=== PATIENT | male | born 1985 | race Caucasian/White ===

== ENCOUNTER 2022-08-27 19:40 | Emergency (ER) | payer BC, SELFPAY ==
[2022-08-27 19:55] VITALS: BP 153/103; PULSE 81; RESP 18; TEMP 36.6; O2SAT 99; BMI 25.0
--- NOTE | 2022-08-27 20:15 | CRLHL7_ITS ---
For Patients: As a result of the Century Cures Act, medical imaging exams and procedure reports are released immediately into your electronic medical record. You may view this report before your referring provider. If you have questions, please contact your health care provider. INDICATION: Abdominal pain. History of diverticulitis. CT ABDOMEN AND PELVIS WITH CONTRAST TECHNIQUE: Multidetector CT imaging was performed through the abdomen and pelvis following intravenous contrast administration using 98 mL Isovue 370. Coronal and sagittal reconstructions were generated. COMPARISON: 07/22/2020 CT abdomen and pelvis. FINDINGS: Lower chest: Lung bases are clear. Liver: Within normal limits. Gallbladder and bile ducts: No gallbladder wall thickening or calcified gallstones. No biliary dilation identified. Pancreas: Unremarkable. Spleen: Normal. Adrenals: 4 centimeter right adrenal myelolipoma again seen. Unremarkable left adrenal. Kidneys, ureters, and urinary bladder: No renal masses or hydronephrosis. No bladder mass or definite wall thickening. Gastrointestinal tract: Normal caliber small bowel without wall thickening or obstruction. The appendix is normal. Multiple colon diverticula are again noted. There is wall thickening and pericolonic fat stranding of the mid to distal sigmoid colon, consistent with diverticulitis. Vascular structures: Stable mild dilation of the celiac trunk. Normal aortic caliber. Peritoneum: No free air, abscess, or significant free fluid. Lymph nodes: No pathologically enlarged nodes identified. Reproductive organs: No pelvic masses. Bones: Normal for age. IMPRESSION: 1. Moderately severe acute diverticulitis of the sigmoid colon. No evidence of perforation or abscess. 2. Nonacute additional findings as detailed above. ZEINA HOWARD MD [employer] Dictated by Anibal Howard MD @ 08/27/2022 9:05:28 PM Please note that all CT scans at this facility use dose modulation, iterative reconstruction, and/or weight-based dosing when appropriate to reduce radiation dose to as low as reasonably achievable. Dictated by: Anibal Howard MD @ 08/27/2022 21:07:53 (Electronically Signed)
--- NOTE | 2022-08-27 20:19 | ED_ITS ---
HPI - Abdominal Pain General Chief Complaint: Abdominal Pain Stated Complaint: Diverticulitis Time Seen by Provider: 08/27/22 20:07 History of Present Illness HPI narrative: Patient is 36-year-old gentleman with history of recurrent diverticulitis who presents with 5 days of left-sided abdominal pain. He has had no blood in his stool. He has no dysuria no nausea no vomiting no fevers no chills. He has been eating and drinking to a limited extent. He has had no weight loss. He swift s had no recent antibiotics. Patient has been treated as an outpatient non number of times is concerned that he may have low-grade diverticulitis at this time. No other related symptoms patient is otherwise feeling well. Related Data Home Medications Medication Instructions Recorded Confirmed levothyroxine 50 mcg tablet 50 mcg PO DAILY 08/27/22 08/27/22 linaclotide 145 mcg capsule 145 mcg PO DAILY 08/27/22 08/27/22 (Linzess) Allergies Allergy/AdvReac Type Severity Reaction Status Date / Time No Known Drug Allergies Allergy Verified 08/27/22 19:53 Review of Systems Status of ROS Reports: 10 or more systems reviewed and unremarkable except as noted in History and below [facility] Medical History Hypothyroidism ?E03.9 - Hypothyroidism, unspecified (ICD-10) Diverticulitis ?K57.92 - Diverticulitis of intestine, part unspecified, without perforation or abscess without bleeding (ICD-10) Social History Smoking Status: Former smoker Do you use any of these nicotine containing products: Smokeless Tobacco Second hand tobacco smoke exposure: No How often do you have a drink containing alcohol: monthly or less How often do you have six or more drinks on one occasion: Never AUDIT-C Alcohol total score: 1 Non-prescribed substance use: denies use Exam Narrative: Exam Narrative: EXAM GENERAL: Patient appears comfortable and well. EYES: No scleral icterus. LYMPH: No supraclavicular or cervical lymphadenopathy. SKIN: Visible skin seen during exam normal or with benign process only. EXT: No dependent lower extremity pedal edema. HEART: Regular rate and rhythm with no murmurs, rubs, or gallops. LUNGS: Clear to auscultation bilaterally with no crackles or wheezes. ABD: Soft, non tender, non distended. PSYCH: Good eye contact, speech is not pressured. Const: Vital Signs, click to edit/add: Vital Signs - 24 hr 08/27/22 19:55 Temperature 97.9 F Pulse Rate [Pulse Oximeter] 81 Respiratory Rate 18 Blood Pressure [Le ft Upper Arm] 153/103 H Pulse Oximetry 99 Oxygen Delivery Me thod Room Air Course Course Hospital Course: Patient seen examined. CT abdomen pelvis UA CBC comprehensive metabolic panel amylase ordered. Vital Signs Vital signs: Initial Vital Signs Temperature 97.9 F 08/27/22 19:55 Temperature Source Temporal Artery Scan 08/27/22 19:55 Pulse Rate 81 08/27/22 19:55 Pulse Rhythm Regular 08/27/22 19:55 Respiratory Rate 18 08/27/22 19:55 Blood Pressure 153/103 H 08/27/22 19:55 Blood Pressure Mean 119 H 08/27/22 19:55 Pulse Oximetry 99 08/27/22 19:55 Oxygen Delivery Method Room Air 08/27/22 19:55 Vital Signs Temperature 97.9 F 08/27/22 19:55 Pulse Rate 81 08/27/22 19:55 Respiratory Rate 18 08/27/22 19:55 Blood Pressure 153/103 H 08/27/22 19:55 Pulse Oximetry 99 08/27/22 19:55 Oxygen Delivery Method Room Air 08/27/22 19:55 Temperature 97.9 F 08/27/22 19:55 Pulse Rate 81 08/27/22 19:55 Respiratory Rate 18 08/27/22 19:55 Blood Pressure 153/103 H 08/27/22 19:55 Pulse Oximetry 99 08/27/22 19:55 Oxygen Delivery Method Room Air 08/27/22 19:55 MDM - Abdominal Pain Medical Records Medical records narrative: Patient is a 36-year-old gentleman with history of recurrent diverticulitis. He presents with left lower quadrant pain and CT scan shows diverticulitis without perforation. Patient has done well on outpatient Cipro and Flagyl. He is not toxic in appearance. I did prescribe Cipro and Flagyl for the next 10 days with outpatient follow-up with me in the interim p.r.n. if symptoms do not improve. Patient has seen [facility] in the past and have discussed partial colectomy. Patient take Tylenol and Motrin as needed follow-up as directed. Lab Data Labs: Lab Results 08/27/22 Range/Units 20:25 Sodium 132 L (135-149) mmol/L Potassium 4.1 (3.6-5.1) mmol/L Chloride 98 (96-114) mmol/L Carbon Dioxide 27 (20-32) mmol/L BUN 9 (5-24) mg/dL Creatinine 1.2 (0.5-1.5) mg/dL Estimated Creat Clear 101.71 Estimated GFR 80 ml/min Glucose 74 (60-115) mg/dL Calcium 9.9 (8.4-10.6) mg/dL Total Bilirubin 1.4 (0.1-1.5) mg/dL AST 28 (12-35) U/L ALT 30 (4-50) U/L Alkaline Phosphatase 66 (40-150) U/L Total Protein 8.2 (6.0-8.3) g/dL Albumin 4.7 (3.3-5.0) g/dL Amylase 68 (18-89) U/L Discharge Plan Discharge Clinical Impression: Diverticulitis Patient Disposition: Home, Self-Care Condition: Stable Instructions: Diverticulitis (ED) Additional Instructions: Cipro Flagyl Tylenol Motrin Advanced diet as tolerated Follow-up with [facility] as directed Activity Level: No Restrictions Discharge Diet: Regular Prescriptions: No Action levothyroxine 50 mcg tablet 50 mcg PO DAILY Linzess 145 mcg capsule 145 mcg PO DAILY Stand Alone Forms: [employer] Info Instructions
[2022-08-27 20:44] LABS: Albumin* 4.7 g/dL (3.3-5.0); Chloride* 98 mmol/L (96-114); Potassium* 4.1 mmol/L (3.6-5.1); Sodium* 132 mmol/L (135-149)
[2022-08-27 20:47] LABS: Alkaline Phosphatase* 66 U/L (40-150); Amylase* 68 U/L (18-89); Aspartate Amino Transferase* 28 U/L (12-35); Bilirubin Total* 1.4 mg/dL (0.1-1.5); Blood Urea Nitrogen* 9 mg/dL (5-24); Calcium* 9.9 mg/dL (8.4-10.6); Carbon Dioxide* 27 mmol/L (20-32); Creatinine* 1.2 mg/dL (0.5-1.5); Est. Creatinine Clearance* 101.71; Estimated Glomerular Filt Rate 80 ml/min; Glucose* 74 mg/dL (60-115); Total Protein* 8.2 g/dL (6.0-8.3)
[2022-08-27 20:48] LABS: Alanine Aminotransferase* 30 U/L (4-50)
[2022-08-27 21:36] LABS: Basophils Absolute Auto 0.02 K/uL (0.00-0.30); Basophils Percent Auto 0.3 % (0.0-3.0); Eosinophils Percent Auto 1.3 % (0.0-7.0); Hematocrit 49.5 % (37.0-53.0); Hemoglobin* 16.3 gm/dL (13.5-17.5); Immature Granulocytes Abs Auto 0.02 K/uL (0.00-0.30); Immature Granulocytes Pct Auto 0.3 %; Lymphocytes Percent Auto 19.9 % (20-44); Mean Corpuscular HGB Conc 33 gm/dL (32-36); Mean Corpuscular Hemoglobin 27 pg (26-34); Mean Corpuscular Volume 80 fL (80-100); Monocytes Percent Auto 8.4 % (0.0-11.0); Neutrophils Absolute Auto 5.21 K/uL (1.7-7.0); Neutrophils Percent Auto 69.8 % (42.0-72.0); Platelet Count* 219 K/uL (140-440); RDW Coefficient of Variation % 15.2 % (11.5-15.5); Red Blood Count 6.16 m/uL (4.30-5.90); White Blood Count* 7.47 K/uL (4.50-11.00)
[2022-08-27 21:38] LABS: Slide Review Reflex No
[2022-08-27 21:42] VITALS: BP 142/92; PULSE 77; RESP 18; O2SAT 98
== END 2022-08-27 21:43 | disposition home or self-care (01) ==
PROVIDERS: Emergency Provider Internal Medicine
DX: K57.92 Diverticulitis of intestine, part unspecified, without perforation or abscess without bleeding (principal)
CPT/HCPCS: 36415; 74177; 80053; 81003; 82150; 85025; 99283; 99284; 99285; Q9967

== ENCOUNTER 2023-03-14 09:41 | Emergency (ER) | payer BC, SELFPAY ==
[2023-03-14 10:00] VITALS: BP 140/87; PULSE 80; RESP 16; TEMP 36.6; O2SAT 100; BMI 30.8
--- NOTE | 2023-03-14 10:20 | ED.ABDPAIN ---
HPI - Abdominal Pain General Chief Complaint: Abdominal Pain Stated Complaint: Diverticulitis Time Seen by Provider: 03/14/23 10:12 History of Present Illness HPI narrative: Patient is a 37-year-old gentleman who I have seen the past for diverticulitis presents with a 1 day history of left lower quadrant pain. In 17 days patient is going to have a left sided partial colectomy due to recurrent diverticulitis. We did do imaging in August which showed diverticulitis without perforation. Patient presents with no blood in his stool no fevers no chills no nausea no vomiting. Pain is moderate but he is from [facility] with symptoms of diverticulitis and decided to come in right away. He does extremely well on Cipro and Flagyl. He has had no other complications with his diverticulitis in the past. He has no diarrhea no chest pain shortness a breath orthopnea no PND. Again pain is localized to left lower quadrant and is sharp. Related Data Home Medications Medication Instructions Recorded Confirmed levothyroxine 50 mcg tablet 50 mcg PO DAILY 08/27/22 08/27/22 linaclotide 145 mcg capsule 145 mcg PO DAILY 08/27/22 08/27/22 (Linzess) Allergies Allergy/AdvReac Type Severity Reaction Status Date / Time No Known Drug Allergies Allergy Verified 08/27/22 19:53 Review of Systems Status of ROS Reports: 10 or more systems reviewed and unremarkable except as noted in History and below [facility] Medical History Hypothyroidism ?E03.9 - Hypothyroidism, unspecified (ICD-10) Diverticulitis ?K57.92 - Diverticulitis of intestine, part unspecified, without perforation or abscess without bleeding (ICD-10) Social History Smoking Status: Former smoker Do you use any of these nicotine containing products: Smokeless Tobacco Second hand tobacco smoke exposure: No How often do you have a drink containing alcohol: monthly or less How often do you have six or more drinks on one occasion: Never AUDIT-C Alcohol total score: 1 Non-prescribed substance use: denies use Exam Narrative: Exam Narrative: EXAM GENERAL: Patient appears comfortable and well. EYES: No scleral icterus. LYMPH: No supraclavicular or cervical lymphadenopathy. SKIN: Visible skin seen during exam normal or with benign process only. EXT: No dependent lower extremity pedal edema. HEART: Regular rate and rhythm with no murmurs, rubs, or gallops. LUNGS: Clear to auscultation bilaterally with no crackles or wheezes. ABD: Soft, non tender, non distended. Minimal tenderness noted in left lower quadrant. Positive bowel sounds throughout. PSYCH: Good eye contact, speech is not pressured. Const: Vital Signs, click to edit/add: Vital Signs - 24 hr 03/14/23 10:00 Temperature 97.9 F Pulse Rate [Pulse Oximeter] 80 Respiratory Rate 16 Blood Pressure [[facility] Upper Arm] 140/87 H Pulse Oximetry 100 Course Course ED Course: Patient seen and examined. Medical record reviewed. Vital Signs Vital signs: Initial Vital Signs Temperature 97.9 F 03/14/23 10:00 Temperature Source Oral 03/14/23 10:00 Pulse Rate 80 03/14/23 10:00 Respiratory Rate 16 03/14/23 10:00 Blood Pressure 140/87 H 03/14/23 10:00 Blood Pressure Mean 104 03/14/23 10:00 Blood Pressure Position Sitting 03/14/23 10:00 Pulse Oximetry 100 03/14/23 10:00 Vital Signs Temperature 97.9 F 03/14/23 10:00 Pulse Rate 80 03/14/23 10:00 Respiratory Rate 16 03/14/23 10:00 Blood Pressure 140/87 H 03/14/23 10:00 Pulse Oximetry 100 03/14/23 10:00 Temperature 97.9 F 03/14/23 10:00 Pulse Rate 80 03/14/23 10:00 Respiratory Rate 16 03/14/23 10:00 Blood Pressure 140/87 H 03/14/23 10:00 Pulse Oximetry 100 03/14/23 10:00 MDM - Abdominal Pain MDM Narrative Medical decision making narrative: Patient is a 37-year-old gentleman with history of recurrent diverticulitis of the sigmoid colon who presents with [id number] left lower quadrant pain. I did review his medical record and have seen him in the past. I do not believe further imaging or lab work will change our diagnosis. He does have outpatient follow-up with his GI surgeon and does have a left-sided partial colectomy scheduled in 17 days. I did elect to treat with Cipro and Flagyl as per previous as well as symptomatic treatment. He does know me from the clinic and will follow-up with me on a p.r.n. basis as well. Differential Diagnosis Differential diagnosis: Likely abdominal pain, acute appendicitis, calculus of kidney, constipation, diverticulitis, gastroenteritis, pancreatitis and small bowel obstruction Discharge Plan Discharge Clinical Impression: Diverticulitis Patient Disposition: Home, Self-Care Condition: Stable Instructions: Diverticulitis (ED) Additional Instructions: Cipro and Flagyl per previous Follow-up with your surgeon as directed Activity Level: No Restrictions Discharge Diet: Regular Prescriptions: No Action levothyroxine 50 mcg tablet 50 mcg PO DAILY Linzess 145 mcg capsule 145 mcg PO DAILY Follow Up/Referrals: Provider,Not a Local [Primary Care Provider] - Stand Alone Forms: [employer] Info Instructions
== END 2023-03-14 10:36 | disposition home or self-care (01) ==
LOC: ED 10:34
PROVIDERS: Emergency Provider Internal Medicine
DX: K57.92 Diverticulitis of intestine, part unspecified, without perforation or abscess without bleeding (principal)
CPT/HCPCS: 99283

== ENCOUNTER 2023-04-16 12:22 | Emergency (ER) | payer BC, SELFPAY ==
[2023-04-16] VITALS (8 sets, daily range): BP systolic 160; BP diastolic 110; PULSE 99–108; RESP 18; TEMP 38.5; O2SAT 96–100; BMI 32.5
--- NOTE | 2023-04-16 12:54 | ED.GENADULT ---
HPI - General Adult General Date Seen: 04/16/23 Chief complaint: Abdominal Pain Stated complaint: diverticulitis Time Seen by Provider: 04/16/23 12:49 History of Present Illness HPI narrative: This is a 37-year-old male with a past medical history of hypothyroidism, diverticulitis, and per records was scheduled for partial colectomy for recurrent diverticulitis last week. Per medical record review, he was in the ER on 03/14/[address] Underwood for abdominal pain. Empirically prescribed Cipro and Flagyl. His symptoms resolved after that episode. Unfortunately, due to the proximity of that episode with his scheduled colectomy surgery and had to be rescheduled. He is now scheduled to have surgery on May 04. He redeveloped symptoms of left lower quadrant abdominal pain yesterday that are worse today. He is not having fever chills. He is mildly nauseous but not vomiting. Bowel movements have been urgent but not bloody or mucousy. Symptoms are very reminiscent of his previous episodes of diverticulitis, but he feels like the pain is a bit more sharp than normal. He is worried that he may actually be perforated this time. He came here to the ER today with his family, who drove him in. Related Data Home Medications Medication Instructions Recorded Confirmed levothyroxine 50 mcg tablet 50 mcg PO DAILY 08/27/22 08/27/22 linaclotide 145 mcg capsule 145 mcg PO DAILY 08/27/22 08/27/22 (Linzess) Previous Rx's Medication Instructions Recorded ciprofloxacin HCl 500 mg tablet 500 mg PO BID #20 tabs 04/16/23 (Cipro) metronidazole 500 mg tablet 500 mg PO Q8H 10 days #30 tabs 04/16/23 Allergies Allergy/AdvReac Type Severity Reaction Status Date / Time No Known Drug Allergies Allergy Verified 08/27/22 19:53 [facility] Medical History Hypothyroidism ?E03.9 - Hypothyroidism, unspecified (ICD-10) Diverticulitis ?K57.92 - Diverticulitis of intestine, part unspecified, without perforation or abscess without bleeding (ICD-10) Social History Smoking Status: Former smoker Do you use any of these nicotine containing products: Smokeless Tobacco Second hand tobacco smoke exposure: No How often do you have a drink containing alcohol: monthly or less How often do you have six or more drinks on one occasion: Never AUDIT-C Alcohol total score: 1 Non-prescribed substance use: denies use Exam Narrative: Exam Narrative: Constitutional: Appears well-developed and well-nourished. Alert. Conversant. Non toxic. HENT: Head: Atraumatic. Nose: Nose normal. Mouth/Throat: Oral mucosa is clear and moist. no trismus. Pharynx normal. Eyes: Conjunctivae normal. EOM normal. Pupils equal, round, and reactive to light. No scleral icterus. Neck: Normal range of motion. Neck supple. No tracheal deviation present. Cardiovascular: Normal rate, regular rhythm. No gallop. No friction rub. No murmur heard. Pulmonary/Chest: Effort normal. No stridor. No respiratory distress. No wheezes. No rales. No rhonchi . No tenderness. Abdominal: Soft. Bowel sounds normal. No distension. No mass. Marked left lower quad tenderness. No rebound. No guarding. No CVA tenderness Musculoskeletal: RUE: Normal range of motion. No tenderness. No deformity LUE: Normal range of motion. No tenderness. No deformity RLE: Normal range of motion. No edema. No tenderness. No deformity LLE: Normal range of motion. No edema. No tenderness. No deformity Neurological: Alert and oriented to person, place, and time. Normal strength. CN II-VII intact. No sensory deficit. GCS eye subscore is 4. GCS verbal subscore is 5. GCS motor subscore is 6. Normal coordination Skin: Skin is warm and dry. No rash noted. No pallor. Normal capillary refill. Psychiatric: Normal mood. Normal affect. Const: Vital Signs, click to edit/add: Vital Signs - 24 hr 04/16/23 12:54 04/16/23 14:13 04/16/23 14:15 Temperature 101.3 F H Pulse Rate 101 H 104 H Pulse Rate [Right Pulse Oximeter] 99 Respiratory Rate 18 Blood Pressure [Ri ght Upper Arm] 160/110 H Pulse Oximetry 100 96 96 Oxygen Delivery Me thod Room Air 04/16/23 14:30 Temperature Pulse Rate 106 H Pulse Rate [Right Pulse Oximeter] Respiratory Rate Blood Pressure [Ri ght Upper Arm] Pulse Oximetry 96 Oxygen Delivery Me thod Course Vital Signs Vital signs: Initial Vital Signs Temperature 101.3 F H 04/16/23 12:54 Temperature Source Temporal Artery Scan 04/16/23 12:54 Pulse Rate 99 04/16/23 12:54 Respiratory Rate 18 04/16/23 12:54 Blood Pressure 160/110 H 04/16/23 12:54 Blood Pressure Mean 126 H 04/16/23 12:54 Blood Pressure Position Sitting 04/16/23 12:54 Pulse Oximetry 100 04/16/23 12:54 Oxygen Delivery Method Room Air 04/16/23 12:54 Vital Signs Temperature 101.3 F H 04/16/23 12:54 Pulse Rate 99 04/16/23 12:54 Respiratory Rate 18 04/16/23 12:54 Blood Pressure 160/110 H 04/16/23 12:54 Pulse Oximetry 100 04/16/23 12:54 Oxygen Delivery Method Room Air 04/16/23 12:54 Temperature 101.3 F H 04/16/23 12:54 Pulse Rate 106 H 04/16/23 14:30 Respiratory Rate 18 04/16/23 12:54 Blood Pressure 160/110 H 04/16/23 12:54 Pulse Oximetry 96 04/16/23 14:30 Oxygen Delivery Method Room Air 04/16/23 12:54 Medications Administered Medications: Generic Name Dose Route Start Last Admin Trade Name Freq PRN Reason Stop Dose Admin Hydromorphone HCl 0.5 mg 04/16/23 13:15 04/16/23 13:48 Hydromorphone 0.5 Mg/0.5 Ml Inj IVP 0.5 mg Q1H PRN Administration Pain Discontinued Medications Generic Name Dose Route Start Last Admin Trade Name Freq PRN Reason Stop Dose Admin Sodium Chloride 1,000 mls @ 1,000 mls/hr 04/16/23 13:15 04/16/23 14:43 0.9 % Sodium Chloride 1000 Ml IV 04/16/23 14:14 Infused .Q1H JUAN Infusion Ondansetron HCl 4 mg 04/16/23 13:15 04/16/23 13:48 Ondansetron 2 Mg/Ml Inj IVP 04/16/23 13:16 4 mg ONCE ONE Administration Medical Decision Making MDM Narrative Medical decision making narrative: Presented to the Emergency Department with left lower quad abdominal pain. The differential diagnosis of abdominal pain includes: Appendicitis, Bowel Obstruction, Ulcer, Ischemia, Cholecystitis, Diverticulitis, Pancreatitis, UTI, kidney stone, Enteritis/Colitis, amongst many other etiologies. Patient has a long history of recurrent sigmoid diverticulitis and is actually scheduled to have partial colectomy done in a few weeks. Symptoms are reminiscent to him for recurrent diverticulitis. Labs and CT are obtained to rule out the possibility of surgical complications such as perforation. Labs and imaging show diverticulitis but no other surgical complication. We will treat his diverticulitis with oral antibiotics. No life threatening cause or need for emergent surgery or hospital admission is detected today. The patient was advised that if symptoms do not completely resolve within another 12-24 hours re-evaluation with primary care or return to the ED is indicated. The patient also understands that if they worsen, they should return to the ER right away. I discussed the uncertainty about the diagnosis and answered the patient's questions. Return precautions reviewed Discussed risks of fluoroquinolones including its connective tissue with the patient. He says he has always done better with a regimen of Cipro and Flagyl than with other antibiotics. Therefore will do 10 day course of Cipro five hundred b.i.d. and Flagyl 500 t.i.d.. He has an appointment to recheck with primary care in 2 days on Tuesday (actually previously scheduled for his preop) and will follow up with his colorectal surgeon. We did push images to the [facility] system today as well as provide the patient with digital copies of his CT imaging on a disc. Lab Data Labs: Lab Results 04/16/23 04/16/23 Range/Units 13:25 13:46 WBC 11.60 H (4.50-11.00) K/uL RBC 5.66 (4.30-5.90) m/uL Hgb 15.8 (13.5-17.5) gm/dL Hct 47.4 (37.0-53.0) % MCV 84 (80-100) fL MCH 28 (26-34) pg MCHC 33 (32-36) gm/dL RDW Coeff of Db 14.1 (11.5-15.5) % Plt Count 224 (140-440) K/uL Neut % (Auto) 85.0 H (42.0-72.0) % Lymph % (Auto) 6.0 L (20-44) % [place] % (Auto) 8.5 (0.0-11.0) % Eos % (Auto) 0.3 (0.0-7.0) % Baso % (Auto) 0.1 (0.0-3.0) % Neut # (Auto) 9.90 H (1.7-7.0) K/uL Lymph # (Auto) 0.70 L (0.90-2.90) K/uL [place] # (Auto) 1.00 H (0.00-0.90) K/UL Eos # (Auto) 0.00 (0.00-0.50) K/uL Baso # (Auto) 0.00 (0.00-0.30) K/uL Abs Immat Gran (auto) 0.00 (0.00-0.30) K/uL Imm/Tot Granulo (auto) 0.1 % Sodium 138 (135-149) mmol/L Potassium 4.0 (3.6-5.1) mmol/L Chloride 102 (96-114) mmol/L Carbon Dioxide 24 (20-32) mmol/L Anion Gap 12 (7-15) mEq/L BUN 10 (5-24) mg/dL Creatinine 1.0 (0.5-1.5) mg/dL Estimated Creat Clear 120.88 Estimated GFR 99 ml/min Glucose 82 (60-115) mg/dL Calcium 9.9 (8.4-10.6) mg/dL Urine Color Yellow (Yellow) Urine Appearance Clear (Clear) Urine pH 7.0 (5.0-8.5) Ur Specific [place] 1.010 (1.000-1.030) Urine Protein Negative (Negative) Urine Glucose (UA) Negative (Negative) Urine Ketones 1+ A (Negative) Urine Blood Negative (Negative) Urine Nitrite Negative (Negative) Urine Bilirubin Negative (Negative) Urine Urobilinogen 0.2 (0.2-1.0) Ur Leukocyte Esterase Negative (Negative) Urine RBC 0-2 (0-2) Urine WBC 0-2 (0-5) Ur Squamous Epith Cells None (None-Few) Amorphous Sediment Few A (None) Urine Bacteria None (None) Imaging Data CT scan - abdomen: Attestation: I have reviewed the pertinent imaging results. Radiologist's impression: IMPRESSION: 1. Acute uncomplicated diverticulitis of the sigmoid colon. 2. Stable right adrenal myelolipoma. Discharge Plan Discharge Clinical Impression: Diverticulitis Patient Disposition: Home, Self-Care Condition: Stable Instructions: Diverticulitis (DC) Additional Instructions: Please follow-up with your doctor at [facility] in [place] on Tuesday. Also follow-up your colorectal surgeon as soon you are able. Use the antibiotics to treat your diverticulitis. Return to the ER if you have any concerns, especially if you have high fever, worsening pain, uncontrolled nausea vomiting, or bloody stool. Prescriptions: New ciprofloxacin HCl [Cipro] 500 mg tablet 500 mg PO BID Qty: 20 0RF metronidazole 500 mg tablet 500 mg PO Q8H 10 Days Qty: 30 0RF No Action levothyroxine 50 mcg tablet 50 mcg PO DAILY Linzess 145 mcg capsule 145 mcg PO DAILY Follow Up/Referrals: Provider,Not a Local [Primary Care Provider] - Stand Alone Forms: [employer] Info Instructions
--- NOTE | 2023-04-16 13:15 | CRLHL7_ITS ---
For Patients: As a result of the Century Cures Act, medical imaging exams and procedure reports are released immediately into your electronic medical record. You may view this report before your referring provider. If you have questions, please contact your health care provider. INDICATION: Left lower quadrant pain suspect perforation TECHNIQUE: CT abdomen and pelvis acquired with IV contrast. Approximately 128 cc of Isovue 370 contrast was administered intravenously. COMPARISON: CT abdomen pelvis 08/27/2022 FINDINGS: The visualized portions of the lung bases are clear. The liver, spleen, pancreas and left adrenal gland are unremarkable. The right adrenal gland contains a mass with macroscopic fat measuring 4.2 x 4.1 cm, consistent with an adrenal myelolipoma and stable from prior exam. The gallbladder is nondistended. The kidneys enhance symmetrically without hydronephrosis. The bladder is minimally distended and unremarkable. There are no dilated loops of small bowel to suggest obstruction.The appendix is normal.There are multiple colonic diverticula along sigmoid colon. There is colonic thickening of the sigmoid colon with adjacent inflammatory change. No intraperitoneal free air is present. There is a small amount associated free fluid. No drainable fluid collection present. Stable dilatation of the celiac artery. Small fat containing hernia. IMPRESSION: 1. Acute uncomplicated diverticulitis of the sigmoid colon. 2. Stable right adrenal myelolipoma. Dictated by Cristiane Ledezma MD @ 04/16/2023 2:06:12 PM Please note that all CT scans at this facility use dose modulation, iterative reconstruction, and/or weight-based dosing when appropriate to reduce radiation dose to as low as reasonably achievable. Dictated by: Cristiane Ledezma MD @ 04/16/2023 14:06:30 (Electronically Signed)
[2023-04-16 13:42] LABS: Basophils Percent Auto 0.1 % (0.0-3.0); Eosinophils Percent Auto 0.3 % (0.0-7.0); Hematocrit 47.4 % (37.0-53.0); Hemoglobin* 15.8 gm/dL (13.5-17.5); Immature Granulocytes Pct Auto 0.1 %; Mean Corpuscular HGB Conc 33 gm/dL (32-36); Mean Corpuscular Hemoglobin 28 pg (26-34); Mean Corpuscular Volume 84 fL (80-100); Monocytes Percent Auto 8.5 % (0.0-11.0); Platelet Count* 224 K/uL (140-440); RDW Coefficient of Variation % 14.1 % (11.5-15.5); Red Blood Count 5.66 m/uL (4.30-5.90)
[2023-04-16 13:47] LABS: Slide Review Reflex No
[2023-04-16] MEDS: 0.9 % SODIUM CHLORIDE 1000 ml 1,000 ML IV (13:47)
[2023-04-16] MEDS: ONDANSETRON 2 MG/ML inj 4 MG IVP (13:48)
[2023-04-16] MEDS: HYDROmorphone 0.5 mg/0.5 ml inj IVP ×2 (13:48→15:22)
[2023-04-16 13:53] LABS: Chloride* 102 mmol/L (96-114); Sodium* 138 mmol/L (135-149)
[2023-04-16 13:56] LABS: Anion Gap 12 mEq/L (7-15); Carbon Dioxide* 24 mmol/L (20-32); Est. Creatinine Clearance* 120.88; Estimated Glomerular Filt Rate 99 ml/min
[2023-04-16 13:57] LABS: Blood Urea Nitrogen* 10 mg/dL (5-24); Calcium* 9.9 mg/dL (8.4-10.6); Glucose* 82 mg/dL (60-115)
[2023-04-16 14:00] LABS: Appearance Urine Clear (Clear); Bilirubin Urine Negative (Negative); Blood Urine Negative (Negative); Color Urine Yellow (Yellow); Glucose Urine Negative (Negative); Ketones Urine 1+ (Negative); Leukocyte Esterase Urine Negative (Negative); Nitrite Urine Negative (Negative); Protein Urine Negative (Negative); Urobilinogen Urine 0.2 (0.2-1.0)
[2023-04-16 14:02] LABS: RBC Urine 0-2 (0-2); WBC Urine 0-2 (0-5)
[2023-04-16 14:03] LABS: Amorphous Sediment Urine Few
== END 2023-04-16 15:40 | disposition home or self-care (01) ==
PROVIDERS: Emergency Provider Emergency Medicine
DX: K57.92 Diverticulitis of intestine, part unspecified, without perforation or abscess without bleeding (principal)
CPT/HCPCS: 36415; 74177; 80048; 81001; 85025; 96374; 96375; 99283; 99284; J1170; J2405; J7030; Q9967